=== PATIENT | female | born 1960 | race Two or more races ===

== ENCOUNTER → 2025-02-10 | Outpatient (CLI) | payer MEDICAID, SELFPAY ==
--- NOTE | 2025-02-10 08:30 | XR_ITS ---
Examination: Screening digital mammography, bilateral Computer aided detection 3-D breast Tomosynthesis, bilateral Date and time of exam: February 10, 2025 at 0807 hours Compared to mammograms dating to November 28, 2019 Indication: Screening Technique: Nonmagnified MLO, CC views of the breasts to been obtained, reconstructed from 3-D Tomosynthesis images. R2 computer aided detection program utilized for evaluation of suspicious masses and/or abnormal calcifications. 3-D Tomosynthesis images obtained. Findings: The breasts are heterogeneously dense, which may obscure small masses 4 mm nodule inner upper right breast anterior depth Breast biopsy marker 12:00 position left breast with mild architectural distortion Impression: BI-RADS Category 0: Incomplete: Need additional imaging evaluation Recommend follow-up spot tomographic views of 4 mm nodule inner upper right breast as well as bilateral breast sonography to complete the workup
== END | disposition home or self-care (01) ==
PROVIDERS: PCP Family Medicine; Referring Provider Physician Assistant Medical; Visit Provider Physician Assistant Medical
DX: Z12.31 Encounter for screening mammogram for malignant neoplasm of breast (principal); N63.12 Unspecified lump in the right breast, upper inner quadrant
CPT/HCPCS: 77063; 77067

== ENCOUNTER → 2025-03-18 | Outpatient (CLI) | payer MEDICAID, SELFPAY ==
--- NOTE | 2025-03-18 08:00 | XR_ITS ---
Examination: Breast ultrasound complete, bilateral Date and time of exam: March 18, 2025 0826 hours INDICATIONS: Mammogram February 10, 2025 4 mm nodule inner upper right breast Technique: Real-time grayscale ultrasonographic imaging bilateral breasts, including all 4 quadrants as well as nipple retroareolar and axillary regions. Findings: Sonographic images right breast 2:00 circumscribed nodule 5 x 4 mm Sonographic images left breast 3:00 circumscribed nodule 4 x 5 mm IMPRESSION: BI-RADS Category 3: Probably benign findings Recommend 1 additional 6 month bilateral breast sonography follow-up to document stability of nodules described above
--- NOTE | 2025-03-18 09:00 | XR_ITS ---
Examination: Diagnostic digital mammography, unilateral, right Computer aided detection 3-D breast Tomosynthesis, unilateral Date and time of exam: March 18, 2025 0841 hours INDICATIONS: Mammogram February 10, 2025 4 mm nodule inner upper right breast Technique: Nonmagnified MLO, CC views of the right breast have been obtained, reconstructed from 3-D Tomosynthesis images. R2 computer aided detection program utilized for evaluation of suspicious masses and/or abnormal calcifications. 3-D Tomosynthesis images obtained. Findings: The breast is heterogeneously dense, which may obscure small masses Partially circumscribed nodule retroareolar region right breast is confirmed, 6 mm Impression: BI-RADS category 3: Probably benign findings Six-month right mammogram follow-up strongly recommended to document stability of retroareolar nodule right breast
== END | disposition home or self-care (01) ==
PROVIDERS: PCP Physician Assistant Medical; Referring Provider Physician Assistant Medical; Visit Provider Physician Assistant Medical
DX: R92.331 Mammographic heterogeneous density, right breast (principal); N63.41 Unspecified lump in right breast, subareolar; N63.25 Unspecified lump in the left breast, overlapping quadrants; N63.12 Unspecified lump in the right breast, upper inner quadrant
CPT/HCPCS: 76641; 77061; 77065; G0279